=== PATIENT | male | born 1995 | race Hispanic/Latino ===

== ENCOUNTER 2018-07-07 10:40 | Inpatient (IN) | payer MEDICAID, OTHER ==
[2018-07-07] MEDS ORDERED: ZOFRAN IV ONE (11:47)
[2018-07-07] MEDS ORDERED: MORPHINE IV ONE (11:47)
[2018-07-07 12:16] LABS: Basophils % (Auto) 0.9 % (0.0-1.8); Eosinophils # (Auto) 0.3 K/mm3 (0.0-0.4); Eosinophils % (Auto) 6.4 % (0.0-4.3); Hematocrit 35.5 % (35.5-45.6); Hemoglobin 11.9 gm/dl (11.8-15.2); Lymphocytes # (Auto) 1.9 K/mm3 (1.2-5.4); Mean Corpuscular HGB Conc 34 % (32-34); Mean Corpuscular Volume 87 fl (84-94); Monocytes # (Auto) 0.4 K/mm3 (0.0-0.8); Monocytes % (Auto) 7.4 % (0.0-7.3); Platelet Count 229 K/mm3 (140-440); Red Blood Count 4.07 M/mm3 (3.65-5.03); Red Cell Distribution Width 14.5 % (13.2-15.2)
[2018-07-07 12:29] LABS: INR 0.97 (0.87-1.13)
[2018-07-07 12:30] LABS: Partial Thromboplastin Time 33.2 Sec. (24.2-36.6)
[2018-07-07 12:39] LABS: Alanine Aminotransferase 11 units/L (7-56); BUN/Creatinine Ratio 28; Blood Urea Nitrogen 14 mg/dL (9-20); Calcium 9.1 mg/dL (8.4-10.2); Hemolysis Index 15
--- NOTE | 2018-07-07 12:48 | Vascular Lab Report ---
PROCEDURE: VL VENOUS DUPLEX UE LT TECHNIQUE: Grayscale, color flow and Doppler tracings obtained of the veins of the left upper extrem ity. HISTORY: arm pain COMPARISONS: No priors FINDINGS: There is no evidence of deep venous thrombosis in the left upper extremity. The internal jugular, subclavian, axillary, brachial, basilic, ulnar, radial, and cephalic veins are patent. IMPRESSION: No evidence of deep venous thrombosis in the left upper extremity.. This document is electronically signed by Mart Gardner MD., Jul 07 2018 12:45:58 PM ET
[2018-07-07] MEDS ORDERED: VANCOMYCIN/NS 1 GM/250 ML 1 GM/250 ML BAG IV ONE (14:00)
--- NOTE | 2018-07-07 14:05 | Emergency Department Report ---
ED General Adult HPI - General Chief complaint: Extremity Problem,Nontraumatic Stated complaint: L HAND SWELLING Time Seen by Provider: 07/07/18 11:19 Source: patient Mode of arrival: Ambulatory Limitations: No Limitations - History of Present Illness Initial comments: She presents to the emergency department with a chief complaint of left arm pain that started mid flight from [place] to [place]. Patient denies any injury to his left forearm or any trauma. Patient also initially denies IV drug use but states he used IV drugs in the recent past. -: Sudden Location: upper extremity Radiation: non-radiation Severity scale (0 -10): 10 Quality: sharp Consistency: constant Improves with: rest Worsens with: movement Associated Symptoms: denies other symptoms Treatments Prior to Arrival: none - Related Data Allergies Allergy/AdvReac Type Severity Reaction Status Date / Time No Known Allergies Allergy Verified 07/07/18 13:53 ED Review of Systems ROS: Stated complaint: L HAND SWELLING Other details as noted in HPI Comment: All other systems reviewed and negative Constitutional: denies: chills, fever Eyes: denies: eye pain, eye discharge, vision change ENT: denies: ear pain, throat pain Respiratory: denies: cough, shortness of breath, wheezing Cardiovascular: denies: chest pain, palpitations Endocrine: no symptoms reported Gastrointestinal: denies: abdominal pain, nausea, diarrhea Genitourinary: denies: urgency, dysuria Musculoskeletal: denies: back pain, joint swelling, arthralgia Skin: denies: rash, lesions Neurological: denies: headache, weakness, paresthesias Psychiatric: denies: anxiety, depression Hematological/Lymphatic: denies: easy bleeding, easy bruising ED Past Medical Hx - Past Medical History Previous Medical History?: No - Surgical History Past Surgical History?: No - Social History Smoking Status: Current Every Day Smoker Substance Use Type: Marijuana ED Physical Exam - General Limitations: No Limitations General appearance: alert, in no apparent distress - Head Head exam: Present: atraumatic, normocephalic - Eye Eye exam: Present: normal appearance - ENT ENT exam: Present: mucous membranes moist - Neck Neck exam: Present: normal inspection - Respiratory Respiratory exam: Present: normal lung sounds bilaterally. Absent: respiratory distress - Cardiovascular Cardiovascular Exam: Present: regular rate, normal rhythm. Absent: systolic murmur, diastolic murmur, rubs, gallop - GI/Abdominal GI/Abdominal exam: Present: soft, normal bowel sounds. Absent: distended, tenderness - Rectal Rectal exam: Present: deferred - Extremities Exam Extremities exam: Present: normal inspection, other (the forearm swollen a ntibiotic ointment to the hand with erythema and is warm to touch, good capillary refill) - Back Exam Back exam: Present: normal inspection - Neurological Exam Neurological exam: Present: alert, oriented X3 - Psychiatric Psychiatric exam: Present: normal affect, normal mood - Skin Skin exam: Present: warm, dry, intact, normal color. Absent: rash ED Course Vital Signs 07/07/18 07/07/18 07/07/18 10:52 11:12 13:03 Temperature 98.1 F 97.9 F Pulse Rate 81 70 Respiratory 20 10 L 18 Rate Blood Pressure 124/70 Blood Pressure 127/62 [Right] O2 Sat by Pulse 100 99 Oximetry ED Medical Decision Making - Lab Data Result diagrams: 07/07/18 12:00 07/07/18 12:00 Lab Results 07/07/18 07/07/18 07/07/18 Range/Units 12:00 12:00 12:00 WBC 4.8 (4.5-11.0) K/mm3 RBC 4.07 (3.65-5.03) M/mm3 Hgb 11.9 (11.8-15.2) gm/dl Hct 35.5 (35.5-45.6) % MCV 87 (84-94) fl MCH 29 (28-32) pg MCHC 34 (32-34) % RDW 14.5 (13.2-15.2) % Plt Count 229 (140-440) K/mm3 Lymph % (Auto) 40.0 H (13.4-35.0) % [place] % (Auto) 7.4 H (0.0-7.3) % Eos % (Auto) 6.4 H (0.0-4.3) % Baso % (Auto) 0.9 (0.0-1.8) % Lymph # 1.9 (1.2-5.4) K/mm3 [place] # 0.4 (0.0-0.8) K/mm3 Eos # 0.3 (0.0-0.4) K/mm3 Baso # 0.0 (0.0-0.1) K/mm3 Seg Neutrophils % 45.3 (40.0-70.0) % Seg Neutrophils # 2.2 (1.8-7.7) K/mm3 PT 13.5 (12.2-14.9) Sec. INR 0.97 (0.87-1.13) APTT 33.2 (24.2-36.6) Sec. Sodium 142 (137-145) mmol/L Potassium 3.5 L (3.6-5.0) mmol/L Chloride 103.5 (98-107) mmol/L Carbon Dioxide 26 (22-30) mmol/L Anion Gap 16 mmol/L BUN 14 (9-20) mg/dL Creatinine 0.5 L (0.8-1.5) mg/dL Estimated GFR > 60 ml/min BUN/Creatinine Ratio 28 % Glucose 114 H (75-100) mg/dL Lactic Acid (0.7-2.0) mmol/L Calcium 9.1 (8.4-10.2) mg/dL Total Bilirubin < 0.20 (0.1-1.2) mg/dL AST 15 (5-40) units/L ALT 11 (7-56) units/L Alkaline Phosphatase 70 (35-129) units/L C-Reactive Protein 0.50 (0.00-1.30) mg/dL Total Protein 6.8 (6.3-8.2) g/dL Albumin 4.0 (3.9-5) g/dL Albumin/Globulin Ratio 1.4 % 07/07/18 Range/Units 12:00 WBC (4.5-11.0) K/mm3 RBC (3.65-5.03) M/mm3 Hgb (11.8-15.2) gm/dl Hct (35.5-45.6) % MCV (84-94) fl MCH (28-32) pg MCHC (32-34) % RDW (13.2-15.2) % Plt Count (140-440) K/mm3 Lymph % (Auto) (13.4-35.0) % [place] % (Auto) (0.0-7.3) % Eos % (Auto) (0.0-4.3) % Baso % (Auto) (0.0-1.8) % Lymph # (1.2-5.4) K/mm3 [place] # (0.0-0.8) K/mm3 Eos # (0.0-0.4) K/mm3 Baso # (0.0-0.1) K/mm3 Seg Neutrophils % (40.0-70.0) % Seg Neutrophils # (1.8-7.7) K/mm3 PT (12.2-14.9) Sec. INR (0.87-1.13) APTT (24.2-36.6) Sec. Sodium (137-145) mmol/L Potassium (3.6-5.0) mmol/L Chloride (98-107) mmol/L Carbon Dioxide (22-30) mmol/L Anion Gap mmol/L BUN (9-20) mg/dL Creatinine (0.8-1.5) mg/dL Estimated GFR ml/min BUN/Creatinine Ratio % Glucose (75-100) mg/dL Lactic Acid 1.40 (0.7-2.0) mmol/L Calcium (8.4-10.2) mg/dL Total Bilirubin (0.1-1.2) mg/dL AST (5-40) units/L ALT (7-56) units/L Alkaline Phosphatase (35-129) units/L C-Reactive Protein (0.00-1.30) mg/dL Total Protein (6.3-8.2) g/dL Albumin (3.9-5) g/dL Albumin/Globulin Ratio % - Radiology Data Radiology results: report reviewed - Medical Decision Making results Discussed with patient Critical care attestation.: If time is entered above; I have spent that time in minutes in the direct care of this critically ill patient, excluding procedure time. ED Disposition Clinical Impression: Cellulitis Disposition: OP ADMIT IP TO THIS HOSP Is pt being admited?: Yes Does the pt Need Aspirin: No Condition: Fair Referrals: YESSENIA JAY MD [Primary Care Provider] - 3-5 Days
[2018-07-07] MEDS ORDERED: NACL 0.9% 1000 ML 1,000 ML IV ONE ×2 (14:06)
--- NOTE | 2018-07-07 16:05 | History and Physical Report ---
History of Present Illness Date of examination: 07/07/18 Date of admission: 07/07/18 14:47 Chief complaint: Left upper extremity swelling since yesterday History of present illness: 22-year-old male with no significant past medical history presents with left upper extremity swelling from mid arm to the hand. Patient went to [place] and did a lot of surfing swimming and water sports. Patient says he may have sustained small abrasions on the left arm. Patient has a history of IV drug use until 1 month ago. Patient denies using any needle for the last 1 month. The last time he used the needle was in his right upper extremity. Patient is off drugs and IV drugs for 1 month. No fever or chills. Recent travel to [place]. Pain is about 7 on a scale of 1-10. Sharp and intermittent in nature. Exacerbated by moving the left arm. 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 Family history noncontributory Social history IV drug abuse, No IV drugs for 1 month to 6 weeks Current every day smoker Marijuana intermittent basis Review of Systems ROS: Stated complaint: L HAND SWELLING Other details as noted in HPI Comment: All other systems reviewed and negative Constitutional: denies: chills, fever Eyes: denies: eye pain, eye discharge, vision change ENT: denies: ear pain, throat pain Respiratory: denies: cough, shortness of breath, wheezing Cardiovascular: denies: chest pain, palpitations Endocrine: no symptoms reported Gastrointestinal: denies: abdominal pain, nausea, diarrhea Genitourinary: denies: urgency, dysuria Musculoskeletal: denies: back pain, joint swelling, arthralgia Extremities: Left upper extremity swollen and red from mid arm to the tip of the fingers Skin: denies: rash, lesions Neurological: denies: headache, weakness, paresthesias Psychiatric: denies: anxiety, depression Hematological/Lymphatic: denies: easy bleeding, easy bruising Medications and Allergies Allergies Allergy/AdvReac Type Severity Reaction Status Date / Time No Known Allergies Allergy Verified 07/07/18 13:53 Exam - Constitutional Vitals: Temp Pulse Resp BP Pulse Ox 98.5 F 74 11 L 104/62 100 07/07/18 15:38 07/07/18 15:38 07/07/18 15:38 07/07/18 15:38 07/07/18 15:38 General appearance: Present: no acute distress, well-nourished - EENT Eyes: Present: PERRL ENT: hearing intact, clear oral mucosa - Neck Neck: Present: supple, normal ROM - Respiratory Respiratory effort: normal Respiratory: bilateral: CTA - Cardiovascular Heart rate: 76 Rhythm: regular Heart Sounds: Present: S1 & S2. Absent: rub, click - Extremities Extremities: no ischemia, pulses intact, pulses symmetrical, abnormal (left upper extremity swollen from mid arm to the hand warm to touch muscles are tight) Peripheral Pulses: within normal limits - Abdominal General gastrointestinal: Present: soft, non-tender, non-distended, normal bowel sounds Male genitourinary: Present: normal - Integumentary Integumentary: Present: clear, warm, dry - Musculoskeletal Musculoskeletal: gait normal, strength equal bilaterally - Psychiatric Psychiatric: appropriate mood/affect, intact judgment & insight - Neurologic Neurologic: CNII-XII intact, moves all extremities Results - Labs CBC & Chem 7: 07/07/18 12:00 07/07/18 12:00 Labs: Laboratory Last Values WBC 4.8 K/mm3 (4.5-11.0) 07/07/18 12:00 RBC 4.07 M/mm3 (3.65-5.03) 07/07/18 12:00 Hgb 11.9 gm/dl (11.8-15.2) 07/07/18 12:00 Hct 35.5 % (35.5-45.6) 07/07/18 12:00 MCV 87 fl (84-94) 07/07/18 12:00 MCH 29 pg (28-32) 07/07/18 12:00 MCHC 34 % (32-34) 07/07/18 12:00 RDW 14.5 % (13.2-15.2) 07/07/18 12:00 Plt Count 229 K/mm3 (140-440) 07/07/18 12:00 Lymph % (Auto) 40.0 % (13.4-35.0) H 07/07/18 12:00 [place] % (Auto) 7.4 % (0.0-7.3) H 07/07/18 12:00 Eos % (Auto) 6.4 % (0.0-4.3) H 07/07/18 12:00 Baso % (Auto) 0.9 % (0.0-1.8) 07/07/18 12:00 Lymph # 1.9 K/mm3 (1.2-5.4) 07/07/18 12:00 [place] # 0.4 K/mm3 (0.0-0.8) 07/07/18 12:00 Eos # 0.3 K/mm3 (0.0-0.4) 07/07/18 12:00 Baso # 0.0 K/mm3 (0.0-0.1) 07/07/18 12:00 Seg Neutrophils % 45.3 % (40.0-70.0) 07/07/18 12:00 Seg Neutrophils # 2.2 K/mm3 (1.8-7.7) 07/07/18 12:00 PT 13.5 Sec. (12.2-14.9) 07/07/18 12:00 INR 0.97 (0.87-1.13) 07/07/18 12:00 APTT 33.2 Sec. (24.2-36.6) 07/07/18 12:00 Sodium 142 mmol/L (137-145) 07/07/18 12:00 Potassium 3.5 mmol/L (3.6-5.0) L 07/07/18 12:00 Chloride 103.5 mmol/L (98-107) 07/07/18 12:00 Carbon Dioxide 26 mmol/L (22-30) 07/07/18 12:00 16 mmol/L 07/07/18 12:00 BUN 14 mg/dL (9-20) 07/07/18 12:00 0.5 mg/dL (0.8-1.5) L 07/07/18 12:00 Estimated GFR > 60 ml/min 07/07/18 12:00 28 % 07/07/18 12:00 Glucose 114 mg/dL (75-100) H 07/07/18 12:00 Lactic Acid 1.40 mmol/L (0.7-2.0) 07/07/18 12:00 Calcium 9.1 mg/dL (8.4-10.2) 07/07/18 12:00 < 0.20 mg/dL (0.1-1.2) 07/07/18 12:00 AST 15 units/L (5-40) 07/07/18 12:00 ALT 11 units/L (7-56) 07/07/18 12:00 70 units/L (35-129) 07/07/18 12:00 0.50 mg/dL (0.00-1.30) 07/07/18 12:00 6.8 g/dL (6.3-8.2) 07/07/18 12:00 4.0 g/dL (3.9-5) 07/07/18 12:00 1.4 % 07/07/18 12:00 Short CBC 07/07/18 Range/Units 12:00 WBC 4.8 (4.5-11.0) K/mm3 Hgb 11.9 (11.8-15.2) gm/dl Hct 35.5 (35.5-45.6) % Plt Count 229 (140-440) K/mm3 BMP 07/07/18 12:00 Sodium 142 Potassium 3.5 L Chloride 103.5 Carbon Dioxide 26 BUN 14 Creatinine 0.5 L Glucose 114 H Calcium 9.1 Liver Function 07/07/18 Range/Units 12:00 Total Bilirubin < 0.20 (0.1-1.2) mg/dL AST 15 (5-40) units/L ALT 11 (7-56) units/L Alkaline Phosphatase 70 (35-129) units/L Albumin 4.0 (3.9-5) g/dL - Imaging and Cardiology Imaging and Cardiology: Left upper extremity duplex scan IMPRESSION: No evidence of deep venous thrombosis in the left upper extremity.. This document is electronically signed by Mart Gardner MD., Jul 07 2018 12:45:58 PM ET Transcribed By: ROCCO Assessment and Plan Advance Directives: Yes (full code) VTE prophylaxis?: Chemical Plan of care discussed with patient/family: Yes - Patient Problems (1) Cellulitis of left upper extremity Current Visit: Yes Status: Acute Plan to address problem: Probably secondary to trauma in [place] No IV drug use recently for for 4-6 weeks IV vancomycin and IV Unasyn initiated Will refer to ID for necessary (2) Hyperglycemia Current Visit: Yes Status: Acute Plan to address problem: Check A1c (3) DVT prophylaxis Current Visit: Yes Status: Acute Plan to address problem: On Lovenox and GI prophylaxis in the form of famotidine
[2018-07-07] MEDS ORDERED: TYLENOL PO PRN (17:47)
[2018-07-07] MEDS ORDERED: SODIUM CHLORIDE FLUSH SYRINGE 10 ML IV PRN (17:47)
[2018-07-07] MEDS ORDERED: ZOFRAN IV PRN (17:47)
[2018-07-07] MEDS ORDERED: VANCOMYCIN PHARMACY TO DOSE IV SCH (18:00)
[2018-07-07] MEDS: HABITROL TD SCH (19:51)
[2018-07-07] MEDS: D5NS 1,000 ML IV SCH (19:51)
[2018-07-07] MEDS: UNASYN/NS 3 GM/100 ML 3 GM/100 ML BAG IV SCH (21:37)
[2018-07-07] MEDS: SODIUM CHLORIDE FLUSH SYRINGE 10 ML IV SCH (21:38)
[2018-07-07] MEDS ORDERED: PEPCID IV SCH (22:00)
[2018-07-07 22:13] LABS: Benzodiazepines Screen,Urine PRESUMPTIVE NEGATIVE; Cannabinoid Screen,Urine PRESUMPTIVE NEGATIVE; Cocaine Screen,Urine PRESUMPTIVE NEGATIVE; Methadone Screen,Urine PRESUMPTIVE NEGATIVE; Opiate Screen,Urine PRESUMPTIVE NEGATIVE
[2018-07-07 22:26] LABS: Amphetamine Screen,Urine PRESUMPTIVE POSITIVE
[2018-07-07] MEDS: VANCOMYCIN/NS 1 GM/250 ML 1 GM/250 ML BAG IV SCH (23:18)
[2018-07-07] MEDS: IBUPROFEN PO PRN (23:19)
[2018-07-08] MEDS: UNASYN/NS 3 GM/100 ML 3 GM/100 ML BAG IV SCH ×5 (00:32→23:59)
[2018-07-08] MEDS: VANCOMYCIN/NS 1 GM/250 ML 1 GM/250 ML BAG IV SCH ×3 (05:38→22:19)
[2018-07-08] MEDS: IBUPROFEN PO PRN ×2 (08:32→18:24)
[2018-07-08] MEDS: HABITROL TD SCH (11:06)
[2018-07-08] MEDS: PEPCID PO SCH ×2 (11:06→22:18)
[2018-07-08] MEDS: D5NS 1,000 ML IV SCH (11:15)
[2018-07-08] MEDS: SODIUM CHLORIDE FLUSH SYRINGE 10 ML IV SCH ×2 (11:15→22:19)
[2018-07-08 13:43] LABS: Basophils # (Auto) 0.1 K/mm3 (0.0-0.1); Basophils % (Auto) 2.6 % (0.0-1.8); Eosinophils # (Auto) 0.2 K/mm3 (0.0-0.4); Hematocrit 32.8 % (35.5-45.6); Hemoglobin 11.2 gm/dl (11.8-15.2); Lymphocytes # (Auto) 1.4 K/mm3 (1.2-5.4); Lymphocytes % (Auto) 31.5 % (13.4-35.0); Mean Corpuscular HGB Conc 34 % (32-34); Mean Corpuscular Volume 87 fl (84-94); Monocytes # (Auto) 0.3 K/mm3 (0.0-0.8); Monocytes % (Auto) 6.4 % (0.0-7.3); Platelet Count 185 K/mm3 (140-440); Red Blood Count 3.78 M/mm3 (3.65-5.03); Red Cell Distribution Width 14.7 % (13.2-15.2)
[2018-07-08 14:38] LABS: Alanine Aminotransferase 9 units/L (7-56); Albumin 3.4 g/dL (3.9-5); BUN/Creatinine Ratio 13; Blood Urea Nitrogen 8 mg/dL (9-20); Calcium 8.5 mg/dL (8.4-10.2); Hemolysis Index 3
--- NOTE | 2018-07-08 17:55 | Progress Note ---
Assessment and Plan Assessment and plan: 23-year-old male patient was admitted through emergency room with left upper extremity swelling and erythema Admitted for cellulitis, on empiric antibiotics, follow cultures, polysubstance abuse, counseling done --Cellulitis left upper extremity; Elevated the limb and empiric antibiotics,Cultures, supportive care Possible ID evaluation if needed --Substance abuse; amphetamine,? IV drug use Advised to quit recreational drug use --Ongoing tobacco use; smoking cessation advised Nicotine patch as needed --DVT prophylaxis; Lovenox Monitor closely and adjust management as needed Plan of care reviewed with the patient's girlfriend at the bedside Disposition; discharged in 1-2 days if stable History Interval history: Patient seen and examined medical records reviewed Admitted with left hand swelling and cellulitis On empiric antibiotics Patient feels slightly better no new complaints Sleeping easily awakens Vital signs noted Hospitalist Physical - Constitutional Vitals: Temp Pulse Resp BP Pulse Ox 98.4 F 70 15 117/71 100 07/08/18 17:08 07/08/18 17:12 07/08/18 17:08 07/08/18 17:08 07/08/18 17:12 General appearance: Present: no acute distress, well-nourished, other (sleeping easily awakens) - EENT Eyes: Present: PERRL, EOM intact - Neck Neck: Present: supple, normal ROM - Respiratory Respiratory effort: normal Respiratory: bilateral: diminished, negative: rales, rhonchi, wheezing - Cardiovascular Rhythm: regular Heart Sounds: Present: S1 & S2 - Extremities Extremities: no ischemia, abnormal (left upper extremity swelling) - Abdominal General gastrointestinal: soft, non-tender, non-distended, normal bowel sounds - Integumentary Integumentary: Present: clear, warm - Psychiatric Psychiatric: appropriate mood/affect, cooperative - Neurologic Neurologic: CNII-XII intact, moves all extremities Results - Labs CBC & Chem 7: 07/08/18 13:13 07/08/18 13:13 Labs: Laboratory Last Values WBC 4.5 K/mm3 (4.5-11.0) 07/08/18 13:13 RBC 3.78 M/mm3 (3.65-5.03) 07/08/18 13:13 Hgb 11.2 gm/dl (11.8-15.2) L 07/08/18 13:13 Hct 32.8 % (35.5-45.6) L 07/08/18 13:13 MCV 87 fl (84-94) 07/08/18 13:13 MCH 30 pg (28-32) 07/08/18 13:13 MCHC 34 % (32-34) 07/08/18 13:13 RDW 14.7 % (13.2-15.2) 07/08/18 13:13 Plt Count 185 K/mm3 (140-440) 07/08/18 13:13 Lymph % (Auto) 31.5 % (13.4-35.0) 07/08/18 13:13 [place] % (Auto) 6.4 % (0.0-7.3) 07/08/18 13:13 Eos % (Auto) 4.0 % (0.0-4.3) 07/08/18 13:13 Baso % (Auto) 2.6 % (0.0-1.8) H 07/08/18 13:13 Lymph # 1.4 K/mm3 (1.2-5.4) 07/08/18 13:13 [place] # 0.3 K/mm3 (0.0-0.8) 07/08/18 13:13 Eos # 0.2 K/mm3 (0.0-0.4) 07/08/18 13:13 Baso # 0.1 K/mm3 (0.0-0.1) 07/08/18 13:13 Seg Neutrophils % 55.5 % (40.0-70.0) 07/08/18 13:13 Seg Neutrophils # 2.5 K/mm3 (1.8-7.7) 07/08/18 13:13 PT 13.5 Sec. (12.2-14.9) 07/07/18 12:00 INR 0.97 (0.87-1.13) 07/07/18 12:00 APTT 33.2 Sec. (24.2-36.6) 07/07/18 12:00 Sodium 140 mmol/L (137-145) 07/08/18 13:13 Potassium 3.8 mmol/L (3.6-5.0) 07/08/18 13:13 Chloride 104.9 mmol/L (98-107) 07/08/18 13:13 Carbon Dioxide 24 mmol/L (22-30) 07/08/18 13:13 15 mmol/L 07/08/18 13:13 BUN 8 mg/dL (9-20) L 07/08/18 13:13 0.6 mg/dL (0.8-1.5) L 07/08/18 13:13 Estimated GFR > 60 ml/min 07/08/18 13:13 13 % 07/08/18 13:13 Glucose 134 mg/dL (75-100) H 07/08/18 13:13 Lactic Acid 1.40 mmol/L (0.7-2.0) 07/07/18 12:00 Calcium 8.5 mg/dL (8.4-10.2) 07/08/18 13:13 0.20 mg/dL (0.1-1.2) 07/08/18 13:13 AST 11 units/L (5-40) 07/08/18 13:13 ALT 9 units/L (7-56) 07/08/18 13:13 61 units/L (35-129) 07/08/18 13:13 0.50 mg/dL (0.00-1.30) 07/07/18 12:00 6.0 g/dL (6.3-8.2) L 07/08/18 13:13 3.4 g/dL (3.9-5) L 07/08/18 13:13 1.3 % 07/08/18 13:13 Presumptive negative 07/07/18 21:44 Presumptive negative 07/07/18 21:44 Ur Barbiturates Screen Presumptive negative 07/07/18 21:44 Ur Phencyclidine Scrn Presumptive negative 07/07/18 21:44 Ur Amphetamines Screen Presumptive positive 07/07/18 21:44 U Benzodiazepines Scrn Presumptive negative 07/07/18 21:44 Presumptive negative 07/07/18 21:44 U Marijuana (THC) Screen Presumptive negative 07/07/18 21:44 Disclamer 07/07/18 21:44 Active Medications - Current Medications Current Medications: Generic Name Dose Route Start Last Admin Trade Name Freq PRN Reason Stop Dose Admin Acetaminophen 650 mg 07/07/18 17:47 Tylenol PO Q4H PRN Pain MILD(1-3)/Fever >100.5/FRAZIER Famotidine 20 mg 05/13/19 10:00 07/08/18 11:06 Pepcid PO 20 mg BID KAMILA Administration Dextrose/Sodium Chloride 1,000 mls @ 75 mls/hr 07/07/18 18:00 07/08/18 11:15 D5ns IV 75 mls/hr DIRECT KAMILA Administration Ampicillin Sodium/Sulbactam Sodium 3 gm in 100 mls @ 100 mls/hr 07/07/18 18:00 07/08/18 11:06 Unasyn/Ns 3 Gm/100 Ml IV 100 mls/hr Q6HR KAMILA Administration Protocol Vancomycin HCl 1 gm in 250 mls @ 166.667 mls/hr 07/07/18 22:00 07/08/18 14:55 Vancomycin/Ns 1 Gm/250 Ml IV 166.667 mls/hr Q8H KAMILA Administration Ibuprofen 600 mg 07/07/18 17:47 07/08/18 08:32 Motrin PO 600 mg Q6H PRN Administration Pain, Mild (1-3) Morphine Sulfate 2 mg 07/07/18 17:47 Morphine IV Q4H PRN Pain, Moderate (4-6) Nicotine 21 mg 07/07/18 20:00 07/08/18 11:06 Habitrol TD 21 mg QDAY KAMILA Administration Ondansetron HCl 4 mg 07/07/18 17:47 Zofran IV Q8H PRN Nausea And Vomiting Sodium Chloride 10 ml 07/07/18 22:00 07/08/18 11:15 Sodium Chloride Flush Syringe 10 Ml IV 10 ml BID KAMILA Administration Sodium Chloride 10 ml 07/07/18 17:47 Sodium Chloride Flush Syringe 10 Ml IV PRN PRN LINE FLUSH
[2018-07-08] MEDS: MORPHINE IV PRN (22:18)
[2018-07-09] MEDS: IBUPROFEN PO PRN ×4 (02:00→22:09)
[2018-07-09] MEDS: MORPHINE IV PRN (05:18)
[2018-07-09] MEDS: VANCOMYCIN/NS 1 GM/250 ML 1 GM/250 ML BAG IV SCH ×3 (05:23→22:10)
[2018-07-09 05:24] LABS: Basophils % (Auto) 0.5 % (0.0-1.8); Eosinophils # (Auto) 0.2 K/mm3 (0.0-0.4); Eosinophils % (Auto) 2.9 % (0.0-4.3); Hemoglobin 11.8 gm/dl (11.8-15.2); Lymphocytes # (Auto) 1.7 K/mm3 (1.2-5.4); Lymphocytes % (Auto) 30.2 % (13.4-35.0); Mean Corpuscular HGB Conc 34 % (32-34); Mean Corpuscular Volume 87 fl (84-94); Monocytes # (Auto) 0.3 K/mm3 (0.0-0.8); Monocytes % (Auto) 5.4 % (0.0-7.3); Platelet Count 201 K/mm3 (140-440); Red Blood Count 4.02 M/mm3 (3.65-5.03); Red Cell Distribution Width 14.4 % (13.2-15.2)
[2018-07-09 05:50] LABS: Alanine Aminotransferase 9 units/L (7-56); Albumin 3.7 g/dL (3.9-5); BUN/Creatinine Ratio 18; Blood Urea Nitrogen 9 mg/dL (9-20); Calcium 8.8 mg/dL (8.4-10.2); Hemolysis Index 13
[2018-07-09] MEDS: UNASYN/NS 3 GM/100 ML 3 GM/100 ML BAG IV SCH ×3 (06:43→17:34)
--- NOTE | 2018-07-09 11:08 | Progress Note ---
Assessment and Plan Assessment and plan: 23-year-old male patient was admitted through emergency room with left upper extremity swelling and erythema Admitted for cellulitis, on empiric antibiotics, follow cultures, polysubstance abuse, counseling done --Cellulitis left hand and arm; worsening swelling X-ray left hand;Nonspecific soft tissue swelling/edema/cellulitis Elevated the limb and empiric antibiotics,Cultures, supportive care Possible ID evaluation if needed --Substance abuse; amphetamine,? IV drug use Advised to quit recreational drug use --Ongoing tobacco use; smoking cessation advised Nicotine patch as needed --DVT prophylaxis; Lovenox Monitor closely and adjust management as needed Plan of care reviewed with the patient's girlfriend at the bedside Disposition; discharged in 1-2 days if stable History Interval history: Patient seen and examined Medical records reviewed Patient is slightly better No change in left hand swelling No new complaints vital signs reviewed Hospitalist Physical - Constitutional Vitals: Temp Pulse Resp BP Pulse Ox 98.2 F 68 18 97/56 99 07/09/18 06:33 07/08/18 23:07 07/09/18 06:33 07/09/18 06:33 07/08/18 23:07 General appearance: Present: no acute distress, well-nourished - EENT Eyes: Present: PERRL, EOM intact - Neck Neck: Present: supple, normal ROM - Respiratory Respiratory effort: normal Respiratory: negative: rales, rhonchi, wheezing - Cardiovascular Rhythm: regular Heart Sounds: Present: S1 & S2 - Extremities Extremities: no ischemia, abnormal (right hand swelling, nontender) Extremity abnormal: edema - Abdominal General gastrointestinal: soft, non-tender, non-distended, normal bowel sounds - Integumentary Integumentary: Present: clear, warm - Psychiatric Psychiatric: appropriate mood/affect, cooperative - Neurologic Neurologic: moves all extremities Results - Labs CBC & Chem 7: 07/09/18 04:57 07/09/18 04:57 Labs: Laboratory Last Values WBC 5.5 K/mm3 (4.5-11.0) 07/09/18 04:57 RBC 4.02 M/mm3 (3.65-5.03) 07/09/18 04:57 Hgb 11.8 gm/dl (11.8-15.2) 07/09/18 04:57 Hct 35.0 % (35.5-45.6) L 07/09/18 04:57 MCV 87 fl (84-94) 07/09/18 04:57 MCH 29 pg (28-32) 07/09/18 04:57 MCHC 34 % (32-34) 07/09/18 04:57 RDW 14.4 % (13.2-15.2) 07/09/18 04:57 Plt Count 201 K/mm3 (140-440) 07/09/18 04:57 Lymph % (Auto) 30.2 % (13.4-35.0) 07/09/18 04:57 Crawford % (Auto) 5.4 % (0.0-7.3) 07/09/18 04:57 Eos % (Auto) 2.9 % (0.0-4.3) 07/09/18 04:57 Baso % (Auto) 0.5 % (0.0-1.8) 07/09/18 04:57 Lymph # 1.7 K/mm3 (1.2-5.4) 07/09/18 04:57 Crawford # 0.3 K/mm3 (0.0-0.8) 07/09/18 04:57 Eos # 0.2 K/mm3 (0.0-0.4) 07/09/18 04:57 Baso # 0.0 K/mm3 (0.0-0.1) 07/09/18 04:57 Seg Neutrophils % 61.0 % (40.0-70.0) 07/09/18 04:57 Seg Neutrophils # 3.4 K/mm3 (1.8-7.7) 07/09/18 04:57 PT 13.5 Sec. (12.2-14.9) 07/07/18 12:00 INR 0.97 (0.87-1.13) 07/07/18 12:00 APTT 33.2 Sec. (24.2-36.6) 07/07/18 12:00 Sodium 141 mmol/L (137-145) 07/09/18 04:57 Potassium 3.8 mmol/L (3.6-5.0) 07/09/18 04:57 Chloride 106.2 mmol/L (98-107) 07/09/18 04:57 Carbon Dioxide 25 mmol/L (22-30) 07/09/18 04:57 14 mmol/L 07/09/18 04:57 BUN 9 mg/dL (9-20) 07/09/18 04:57 0.5 mg/dL (0.8-1.5) L 07/09/18 04:57 Estimated GFR > 60 ml/min 07/09/18 04:57 18 % 07/09/18 04:57 Glucose 98 mg/dL (75-100) 07/09/18 04:57 Lactic Acid 1.40 mmol/L (0.7-2.0) 07/07/18 12:00 Calcium 8.8 mg/dL (8.4-10.2) 07/09/18 04:57 0.20 mg/dL (0.1-1.2) 07/09/18 04:57 AST 12 units/L (5-40) 07/09/18 04:57 ALT 9 units/L (7-56) 07/09/18 04:57 60 units/L (35-129) 07/09/18 04:57 0.50 mg/dL (0.00-1.30) 07/07/18 12:00 6.2 g/dL (6.3-8.2) L 07/09/18 04:57 3.7 g/dL (3.9-5) L 07/09/18 04:57 1.5 % 07/09/18 04:57 Presumptive negative 07/07/18 21:44 Presumptive negative 07/07/18 21:44 Ur Barbiturates Screen Presumptive negative 07/07/18 21:44 Ur Phencyclidine Scrn Presumptive negative 07/07/18 21:44 Ur Amphetamines Screen Presumptive positive 07/07/18 21:44 U Benzodiazepines Scrn Presumptive negative 07/07/18 21:44 Presumptive negative 07/07/18 21:44 U Marijuana (THC) Screen Presumptive negative 07/07/18 21:44 Disclamer 07/07/18 21:44 Active Medications - Current Medications Current Medications: Generic Name Dose Route Start Last Admin Trade Name Freq PRN Reason Stop Dose Admin Acetaminophen 650 mg 07/07/18 17:47 Tylenol PO Q4H PRN Pain MILD(1-3)/Fever >100.5/FRAZIER Famotidine 20 mg 07/08/18 10:00 07/08/18 22:18 Pepcid PO 20 mg BID KAMILA Administration Dextrose/Sodium Chloride 1,000 mls @ 75 mls/hr 07/07/18 18:00 07/08/18 11:15 D5ns IV 75 mls/hr DIRECT KAMILA Administration Ampicillin Sodium/Sulbactam Sodium 3 gm in 100 mls @ 100 mls/hr 07/07/18 18:00 07/09/18 06:43 Unasyn/Ns 3 Gm/100 Ml IV 100 mls/hr Q6HR KAMILA Administration Protocol Vancomycin HCl 1 gm in 250 mls @ 166.667 mls/hr 07/07/18 22:00 07/09/18 05:23 Vancomycin/Ns 1 Gm/250 Ml IV 166.667 mls/hr Q8H KAMILA Administration Ibuprofen 600 mg 07/07/18 17:47 07/09/18 02:00 Motrin PO 600 mg Q6H PRN Administration Pain, Mild (1-3) Morphine Sulfate 2 mg 07/07/18 17:47 07/09/18 05:18 Morphine IV 2 mg Q4H PRN Administration Pain, Moderate (4-6) Nicotine 21 mg 07/07/18 20:00 07/08/18 11:06 Habitrol TD 21 mg QDAY KAMILA Administration Ondansetron HCl 4 mg 07/07/18 17:47 07/08/18 22:18 Zofran IV 4 mg Q8H PRN Administration Nausea And Vomiting Sodium Chloride 10 ml 07/07/18 22:00 07/08/18 22:19 Sodium Chloride Flush Syringe 10 Ml IV 10 ml BID KAMILA Administration Sodium Chloride 10 ml 07/07/18 17:47 Sodium Chloride Flush Syringe 10 Ml IV PRN PRN LINE FLUSH
[2018-07-09] MEDS: HABITROL TD SCH (11:25)
[2018-07-09] MEDS: PEPCID PO SCH ×2 (11:25→22:09)
[2018-07-09] MEDS: D5NS 1,000 ML IV SCH (11:28)
[2018-07-09] MEDS: SODIUM CHLORIDE FLUSH SYRINGE 10 ML IV SCH ×2 (11:28→22:09)
--- NOTE | 2018-07-09 12:30 | XRay Report ---
LEFT HAND, 3 views: History: Swelling, pain. There is moderate to severe diffuse soft tissue swelling. No radiopaque foreign body or soft tissue gas is identified on x-ray. The bony structures and joint spaces are within normal limits. IMPRESSION: Nonspecific soft tissue swelling/edema. Cellulitis?
[2018-07-10] MEDS: UNASYN/NS 3 GM/100 ML 3 GM/100 ML BAG IV SCH ×4 (00:47→18:12)
[2018-07-10] MEDS: MORPHINE IV PRN (00:53)
[2018-07-10] MEDS ORDERED: MELATONIN PO ONE (01:09)
[2018-07-10] MEDS: IBUPROFEN PO PRN ×2 (05:14→16:31)
[2018-07-10] MEDS: VANCOMYCIN/NS 1 GM/250 ML 1 GM/250 ML BAG IV SCH (06:01)
[2018-07-10] MEDS: HABITROL TD SCH (10:39)
[2018-07-10] MEDS: PEPCID PO SCH (10:39)
[2018-07-10] MEDS: SODIUM CHLORIDE FLUSH SYRINGE 10 ML IV SCH (10:40)
[2018-07-10] MEDS: D5NS 1,000 ML IV SCH (10:41)
[2018-07-10] MEDS ORDERED: VANCOMYCIN 1,250 MG in NACL 0.9% 250ML 250 ML IV SCH (14:00)
[2018-07-10 18:35] VITALS: BP 120/69
--- NOTE | 2018-07-10 19:36 | Discharge Summary ---
Providers - Providers Date of Admission: 07/07/18 14:47 Date of discharge: 07/10/18 Attending physician: KAYODE SAMAYOA Primary care physician: [facility] Hospitalization Condition: Fair Hospital course: (1) Cellulitis of left upper extremity Current Visit: Yes Status: Acute Plan to address problem: Probably secondary to trauma in [place] No IV drug use recently for for 4-6 weeks IV vancomycin and IV Unasyn initiated Improved Normal LUE Will d/c on Bactrim ds po BID (2) Hyperglycemia Current Visit: Yes Status: Acute Plan to address problem: Borderline Patient advised 3)Subastance abuse Patient counselled Will follow with psychiatrist he has in [place] for Subutex Disposition: DC-01 TO HOME OR SELFCARE - Discharge Diagnoses (1) Cellulitis of left upper extremity Status: Acute (2) Hyperglycemia Status: Acute (3) DVT prophylaxis Status: Acute Core Measure Documentation - Palliative Care Palliative Care/ Comfort Measures: Not Applicable - Core Measures Any of the following diagnoses?: none Exam - Constitutional Vitals: Temp Pulse Resp BP Pulse Ox 98.1 F 76 20 120/69 100 07/10/18 18:32 07/10/18 18:32 07/10/18 18:32 07/10/18 18:32 07/10/18 18:32 General appearance: Present: no acute distress, well-nourished - EENT Eyes: Present: PERRL ENT: hearing intact, clear oral mucosa - Neck Neck: Present: supple, normal ROM - Respiratory Respiratory effort: normal Respiratory: bilateral: CTA - Cardiovascular Heart rate: 78 Rhythm: regular Heart Sounds: Present: S1 & S2. Absent: rub, click - Extremities Extremities: pulses symmetrical, No edema Peripheral Pulses: within normal limits - Abdominal General gastrointestinal: Present: soft, non-tender, non-distended, normal bowel sounds Male genitourinary: Present: normal - Integumentary Integumentary: Present: clear, warm, dry - Musculoskeletal Musculoskeletal: gait normal, strength equal bilaterally - Psychiatric Psychiatric: appropriate mood/affect, intact judgment & insight - Neurologic Neurologic: CNII-XII intact, moves all extremities - Allied Health Allied health notes reviewed: nursing, case management Plan Activity: no restrictions Diet: regular Follow up with: YESSENIA JAY MD [Primary Care Provider] - 3-5 Days
== END 2018-07-10 20:38 | disposition home or self-care (01) | DRG 603 ==
LOC: ED 10:40 → 3A 14:47
PROVIDERS: ADMIT Internal Medicine; ATTEND Internal Medicine
DX: L03.114 Cellulitis of left upper limb (principal); F17.200 Nicotine dependence, unspecified, uncomplicated; R73.9 Hyperglycemia, unspecified; F15.10 Other stimulant abuse, uncomplicated; Z71.6 Tobacco abuse counseling
CPT/HCPCS: 36415; 80053; 80202; 80307; 82140; 85025; 85610; 85730; 86140; 87040; 99406; G0378; J0295; J2270; J2405; J3370; J7030; J7042; J7050